=== PATIENT | female | born 1980 | race Caucasian/White ===

== ENCOUNTER → 2016-10-27 | Outpatient (CLI) | payer BC ==
[~2016-10-27] MED LIST: CETI10TA83 PO; DULO60CA25 PO; METF-200 PO; OMEP-29 PO; UBID100C10 PO; VITA1TAB21 PO
--- NOTE | 2016-10-28 08:43 | DI ---
Indication: ITS.REASON: M25.562 ACUTE PAIN OF LEFT KNEE; M25.562 INSTABILITY OF LT KNEE J PROCEDURE: KNEE LEFT 3 VIEWS: Encounter: Initial Comparison: None Findings: There is no acute fracture, dislocation or malalignment identified. No significant joint space narrowing. Very tiny patellofemoral and lateral compartment osteophytes. Impression: No acute osseous abnormality. Minimal degenerative change. .
== END ==
LOC: IMA 16:51
PROVIDERS: ATTEND Registered Nurse
DX: M17.12 Unilateral primary osteoarthritis, left knee (principal); M23.52 Chronic instability of knee, left knee

== ENCOUNTER 2016-11-09 20:15 | Inpatient (IN) ==
[2016-11-09] MEDS ORDERED: NS 1,000 ML IV ONE (20:53)
[2016-11-09] MEDS ORDERED: ONDANSETRON 4 MG/2 ML INJECTION IVP ONE (20:53)
[2016-11-09] MEDS ORDERED: KETOROLAC 30 MG/ML INJECTION IVP ONE (20:53)
--- NOTE | 2016-11-09 21:00 | Emergency Department Report ---
Abdominal Pain HPI - General Chief Complaint: Abdominal Pain Stated Complaint: Abdominal Pain Time Seen by Provider: 11/09/16 20:40 Source: patient Mode of arrival: ambulatory Limitations: no limitations - History of Present Illness HPI narrative: 36yo woman presents to the ER tonight with epigastric pain. Pain started at 1500 today. Is sharp/stabbing with radiation to her back. Pt has not had similar sx previously, but has had numerous abdominal surgeries in the past. Has not taken any meds for her pain. MD complaint: abdominal pain Onset (ago): hour(s) (6) Consistency: constant Location: epigastric Severity: severe Severity scale (1-10): 8 Quality: stabbing, sharp Radiation: none Migration to: periumbilical Relieving factors: rest Exacerbating factors: movement Associated symptoms: nausea, fever - Related Data LMP (females 10-50): last week Home Medications Medication Instructions Recorded Confirmed Cetirizine HCl 10 mg PO HS #0 tab 09/03/13 11/09/16 Omeprazole 20 mg PO HS #0 cap 09/03/13 11/09/16 Vitamin B Complex 1 tab PO HS #0 03/21/14 11/09/16 Labetalol [Normodyne] 100 mg PO BID 11/09/16 11/09/16 Levomilnacipran HCl [Fetzima] 120 mg PO DAILY 11/09/16 11/09/16 Allergies Allergy/AdvReac Type Severity Reaction Status Date / Time latex Allergy Mild RASH FROM Verified 11/09/16 20:46 BAND AIDS MOST NARCOTICS AdvReac Unknown STATES IS Uncoded 11/09/16 20:46 SENSITIVE TO NARCOTICS Review of Systems All systems: reviewed and negative except as stated Gastrointestinal: Reports: abdominal pain, nausea PFSH Allergic rhinitis HTN Depr GERD Surgical History: Cholecystectomy. C/s x2 Smoking status: Never smoker Substance use type: does not use Physical Exam - Limitations Limitations: no limitations - General General appearance: alert, in no apparent distress, obese - Head Head exam: atraumatic - Eye Eye exam: Present: normal appearance, PERRL, EOMI. Absent: scleral icterus - ENT ENT exam: Present: normal exam - Neck Neck exam: Present: normal inspection, full ROM, trachea midline - Chest Chest inspection: Present: normal inspection, symmetric chest wall rise - Respiratory Respiratory exam: Present: normal lung sounds bilaterally. Absent: respiratory distress, wheezes, accessory muscle use, prolonged expiratory phase - Cardiovascular Cardiovascular exam: Present: regular rate, normal rhythm, normal heart sounds, +S1, +S2. Absent: systolic murmur, diastolic murmur, +S3, +S4 - Abdominal Exam Abdominal exam: Present: soft, tenderness, normal bowel sounds. Absent: distention, guarding, rebound, psoas sign, obturator sign, Crane's sign, Rovsing's sign, tenderness at McBurney's Point, hernia Abdominal tenderness: Present: RLQ - Back Exam Back exam: Present: normal inspection - Skin Skin exam: Present: warm, dry, intact - Neurological Exam Neurological exam: Present: alert, oriented X3, CN II-XII intact - Psychiatric Psychiatric exam: Absent: normal affect, normal mood Course Course Narrative: 36yo woman with atypical presentation of abdominal. Last two ER visits resulted in cholecystectomy and ectopic treatment. Pt worked up and found to have unremarkable labs. CT ABD/Pelv revealed a grossly enlarged, intact, inflamed retrocecal appendix. Discussed pt with surgeon who requested that pt be admitted to the floor with basic orders; will see pt and plan for surgery in the AM. - Consultations Consultation #1: Omer Time: 22:46 Consultation #2: Dr. Márquez: Requested pt be admitted to his service; requests IVF, pain control, antiemetic, and invanz. Time: 22:46 Vital Signs Temperature 98.0 F 11/09/16 20:30 Pulse Rate 60 11/09/16 20:30 Respiratory Rate 18 11/09/16 20:30 Blood Pressure 162/77 H 11/09/16 20:30 Pulse Oximetry 98 11/09/16 20:30 Temperature 98.0 F 11/09/16 20:48 Pulse Rate 60 11/09/16 20:48 Respiratory Rate 18 11/09/16 20:48 Blood Pressure 162/77 H 11/09/16 20:48 Pulse Oximetry 98 11/09/16 20:48 Abdominal Pain - [facility] Narrative Medical decision making narrative: 36yo woman with acute appendicitis. Pt admitted to Gen Surg for likely appy in AM. - Differential Diagnosis Differential diagnosis: Likely: abdominal pain, acute appendicitis, constipation , diverticulitis, gastroenteritis, pancreatitis, small bowel obstruction - Medical Records Attestation: I reviewed the patient's medical records. - Lab Data Attestation: I reviewed the patient's lab results. Result diagrams: 11/09/16 21:18 11/09/16 21:18 - Radiology Data Attestation: I reviewed the patient's radiology results. CT Abd/pelv: Acute appendicitis. Diverticulosis. Splenomegaly. Disposition Clinical Impression: Acute appendicitis Qualifiers: Acute appendicitis type: with generalized peritonitis Qualified Code(s): K35.2 - Acute appendicitis with generalized peritonitis Disposition: Discharged Home, Self-Care Condition: Improved Time of Disposition: 23:07 - Seen By: physician
[2016-11-09] MEDS: SALINE FLUSH 10ml SYRINGE IVF PRN ×2 (21:25→23:53)
[2016-11-09] MEDS ORDERED: MORPHINE SULFATE 2 MG SYRINGE IVP ONE (21:39)
[2016-11-09] MEDS ORDERED: NS 100 ML ONE (21:43)
[2016-11-09] MEDS ORDERED: IOHEXOL 300mg/ml 100ml INJECTION ONE (21:43)
[2016-11-09] MEDS ORDERED: SALINE FLUSH 10ml SYRINGE ONE (21:43)
[2016-11-09] MEDS ORDERED: PANTOPRAZOLE 40 MG INJECTION IVP ONE (23:10)
[2016-11-09] MEDS ORDERED: ERTAPENEM 1 G in NS 100 ML IV ONE (23:57)
[2016-11-10] MEDS: MORPHINE SULFATE 4 MG SYRINGE IVP PRN ×2 (00:12→06:17)
[2016-11-10] MEDS: LR 1,000 ML IV SCH ×3 (00:13→14:37)
[2016-11-10] MEDS: ONDANSETRON 4 MG/2 ML INJECTION IVP PRN ×2 (06:21→19:19)
--- NOTE | 2016-11-10 07:15 | CT Scan Report ---
Indication: RLQ pain PROCEDURE: CT abdomen pelvis w con: Encounter: Initial Comparison: None Technique: Axial CT images were performed through the abdomen and pelvis after the administration of intravenous contrast. Coronal and sagittal two-dimensional reformats. Automated Exposure Control and Iterative Reconstruction dose reducing techniques were utilized. Contrast: Omnipaque 300 100 mL Findings: The lung bases are clear. The liver is unremarkable. Gallbladder is surgically absent. The spleen, pancreas and adrenal glands are within normal limits. The kidneys are normal. No abdominal or pelvic lymphadenopathy. Bladder is normal. Uterus and ovaries are within normal limits. No free fluid. No evidence of a bowel obstruction. The appendix is enlarged and inflamed with two appendicoliths present. This measures up to 1.6 cm in diameter and is in a retrocecal location extending just below the right lobe of liver. No free air or abscess. Bone windows are within normal limits. Impression: Acute appendicitis. Emergent surgical consultation is recommended. There is a preliminary report by [facility]. .
--- NOTE | 2016-11-10 07:37 | XRay Report ---
INDICATION: Pre-op PROCEDURE: CHEST 2-VIEWS UPRIGHT (PA & LAT) Encounter: Initial COMPARISON: None FINDINGS: The lungs are clear without evidence of focal abnormal airspace opacity. There is no pleural effusion or pneumothorax. The heart size, mediastinal contours and pulmonary vascularity are within normal limits. There is no significant skeletal abnormality. IMPRESSION: No acute cardiopulmonary disease. .
--- NOTE | 2016-11-10 08:27 | History and Physical ---
FINDINGS Mrs. Hartley is a 36-year-old female whom I was asked to see late last evening through the emergency room as a result of the patient's history and physical findings of abdominal pain in conjunction with an abnormal CT scan. The patient informs me that she was feeling her normal self until about 3 o'clock in the afternoon yesterday. The patient states that she began to experience some periumbilical discomfort at that time. As the day progressed the pain became more severe in nature and began to localize to her right lower quadrant. The patient states that she was walking "bent over" because of the discomfort. The patient states that it did feel somewhat better to "roll up in a ball". She described the pain as constant in nature. Pain was made worse with ambulation or with palpation. She did have some nausea in association with the pain but did not have emesis. As a result of the ongoing abdominal pain that is becoming more severe in nature. She presented to our emergency room facility last evening. She had a CT scan that revealed evidence for appendicitis. The patient was subsequently admitted and began on broad- spectrum antibiotics. This morning the patient did not appear to be in acute distress. She was lying in bed and was conversant. PAST MEDICAL HISTORY Performed by my nurse practitioner, Jeison Rocha. PAST SURGICAL HISTORY Performed by my nurse practitioner, Jeison Rocha. MEDICATIONS Performed by my nurse practitionerJeison. ALLERGIES Performed by my nurse practitionerJeison. SOCIAL HISTORY Performed by my nurse practitioner, Jeison Rocha. FAMILY HISTORY Performed by my nurse practitionerJeison. REVIEW OF SYSTEMS Performed by my nurse practitionerJeison. PHYSICAL EXAMINATION Mrs. Hartley is medicated a 36-year-old female who, as above, did not appear to be in acute distress this morning. VITALS: Temperature 96.5, pulse 66, respirations 18, blood pressure 127/72, SaO2 97% on room air. HEENT: Normocephalic. Pupils are equal, round and reactive to light and accommodation. NECK: Supple without lymphadenopathy. CHEST: Clear to auscultation bilaterally. HEART: Regular rate and rhythm. Normal S1 and S2 without gallops, murmurs or clicks. ABDOMEN: Palpation of the abdomen does indeed reveal localized tenderness to her right lower quadrant of her abdomen. Pain was also located slightly more cephalad than typical for appendicitis. Pain was located to the right of the umbilicus as well as slightly caudad. She did have localized tenderness. Did have a component of some voluntary guarding. No evidence for involuntary guarding or rebound tenderness. No evidence of hepatomegaly or other abnormal masses. EXTREMITIES: Without clubbing, cyanosis, or edema. NEURO: Cranial nerves II-XII grossly intact. Patient is without focal motor or sensory deficits. LABORATORY/RADIOGRAPH EVALUATION The patient had a CBC obtained upon admission. Her white count was 11.7. Hemoglobin was slightly low at 10.9. CMP was obtained and found to be essentially within normal limits. Lipase was normal at 73. CT scan of her abdomen and pelvis was obtained. Findings were consistent with that of appendicitis. ASSESSMENT 36-year-old female with acute appendicitis. PLAN Laparoscopic appendectomy. I informed the patient it was my recommendation that we proceed with surgical intervention later today. I did discuss in detail with the patient and her , who is a physician, what a laparoscopic appendectomy entails and its associated risks which include, but are to limited to, bleeding, infection, potential conversion to open procedure. The patient and her understood and wished to proceed. ANDREINA
--- NOTE | 2016-11-10 09:37 | General Surg History&Physical ---
- History of Present Illness Chief complaint: RLQ abd pain HPI: Per Dr. Rome [facility] Patient Stated Medical History Migraine Yes: tension headaches Hypertension Yes: normally takes a beta evangelist GERD Depression Yes Surgical History: Cholecystectomy 2004. 2006, 2008. Right salpingectomy 09-04-2013. 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 Medications Home Medications Medication Instructions Recorded Confirmed Type Cetirizine HCl 10 mg PO HS #0 tab 09/03/13 11/09/16 History Omeprazole 20 mg PO HS #0 cap 09/03/13 11/09/16 History Vitamin B Complex 1 tab PO HS #0 03/21/14 11/09/16 History Labetalol [Normodyne] 100 mg PO BID 11/09/16 11/09/16 History Levomilnacipran HCl [Fetzima] 120 mg PO DAILY 11/09/16 11/09/16 History Allergies Allergy/AdvReac Type Severity Reaction Status Date / Time latex Allergy Mild RASH FROM Verified 11/09/16 20:46 BAND AIDS MOST NARCOTICS AdvReac Unknown STATES IS Uncoded 11/09/16 20:46 SENSITIVE TO NARCOTICS Review of Systems 10-point ROS: negative except for HPI and the following: - Respiratory Respiratory: Present: use of CPAP - Psychiatric Psychiatric: Present: depression - Vital Signs Vital Signs: Last Vital Signs Temp 96.5 F L 11/10/16 07:33 Pulse 66 11/10/16 07:33 Resp 18 11/10/16 07:33 BP 127/72 11/10/16 07:33 Pulse Ox 97 11/10/16 07:33 General Surgery Results - Results Labs: 11/10/16 03:52 11/10/16 03:52 Sepsis Assessment - Evaluation Sepsis screening result: No Definite Risk - Focused Exam Vital Signs Temp Pulse Resp BP Pulse Ox 11/10/16 07:33 96.5 F L 66 18 127/72 97 11/09/16 23:15 97.5 F 62 18 137/86 98 11/09/16 23:01 151/79 H 11/09/16 23:00 59 L 98 Hospital Course Summary Disclaimer: The visit summary below is not to be considered part of the above Progress Note.
[2016-11-10] MEDS ORDERED: PROPOFOL 20 ML ONE ×2 (12:08)
[2016-11-10] MEDS ORDERED: LIDOCAINE 2% (100mg/5mL) PF 5ml vl ONE ×2 (12:08)
[2016-11-10] MEDS ORDERED: ROCURONIUM 50 MG/5 ML INJECTION IVP ONE ×2 (12:08)
[2016-11-10] MEDS ORDERED: SUCCINYLCHOLINE 20mg/mL 10mL INJECTION ONE (12:08)
[2016-11-10] MEDS ORDERED: PROPOFOL 500 MG/50 ML VIAL IV ONE (12:08)
[2016-11-10] MEDS ORDERED: GLYCOPYRROLATE 0.4 MG/2 ML INJECTION ONE (12:12)
[2016-11-10] MEDS ORDERED: ONDANSETRON 4 MG/2 ML INJECTION ONE (12:12)
[2016-11-10] MEDS ORDERED: BUPIVACAINE 0.25%/EPI 1:200,000 30ml SDV ONE (12:15)
[2016-11-10] MEDS ORDERED: BUPIVACAINE 0.25%/EPI 1:200,000 30ml SDV ID ONE (12:18)
--- NOTE | 2016-11-10 12:27 | Anesthesia Preoperative Report ---
Anesthesia Preoperative Record - Date and Time Date: 11/10/16 Preoperative Diagnosis: acute abd. Proposed Procedure: lap. appy Allergies/Adverse Reactions: Allergies Allergy/AdvReac Type Severity Reaction Status Date / Time latex Allergy Mild RASH FROM Verified 11/09/16 20:46 BAND AIDS MOST NARCOTICS AdvReac Unknown STATES IS Uncoded 11/09/16 20:46 SENSITIVE TO NARCOTICS - Vital Signs Vital Signs: Temp Pulse Resp BP Pulse Ox 98.5 F 67 15 133/74 97 11/10/16 12:23 11/10/16 12:23 11/10/16 12:23 11/10/16 12:23 11/10/16 07:33 Height and Weight: Height 1.63 m Weight 138.1 kg Body Mass Index 52.2 - Medications Inpatient Medications: Current Medications Bupivacaine HCl/Epinephrine Bitart (Marcaine/Epi 0.25%/1:200,000) 30 ml ID O ONE Stop: 11/10/16 12:19 Lactated Ringer's (Lactated Ringers) 1,000 mls @ 150 mls/hr IV .Q6H40M NINO Last Infusion: 11/10/16 12:10 Dose: 0 mls/hr Morphine Sulfate (Morphine Sulfate Inj) 1 - 2 mg IVP Q2H PRN PRN Reason: Pain Last Admin: 11/10/16 06:17 Dose: 2 mg Ondansetron HCl (Zofran) 4 mg IVP Q6H PRN PRN Reason: Nausea &/or vomiting Last Admin: 11/10/16 06:21 Dose: 4 mg Home Medications: Home Medications Medication Instructions Recorded Confirmed Type Cetirizine HCl 10 mg PO HS #0 tab 09/03/13 11/09/16 History Omeprazole 20 mg PO HS #0 cap 09/03/13 11/09/16 History Vitamin B Complex 1 tab PO HS #0 03/21/14 11/09/16 History Labetalol [Normodyne] 100 mg PO BID 11/09/16 11/09/16 History Levomilnacipran HCl [Fetzima] 120 mg PO DAILY 11/09/16 11/09/16 History Is Patient on Beta Evangelista?: Yes Beta Evangelista: Yes Beta Evangelista Time: 11/09/16 - Medical History Respiratory: Reports: Sleep Apnea Cardiovascular: Reports: Hypertension Gastrointestional: Reports: Morbid Obesity Other History: Reports: Anesthesia Reactions - Surgical History Respiratory Surgery/Treatments: Reports: CPAP Use Reproductive Surgery/Treatment: Reports: Section (x2) - Social History Smoking Status: Never smoker Hx Chewing Tobacco Use: No Second Hand Exposure: No Substance Use Type: does not use Alcohol Intake: current Alcohol Intake Frequency: a few times a month - Pertinent Findings Laboratory: CBC and BMP 11/10/16 03:52 11/10/16 03:52 BMP 11/09/16 11/10/16 21:18 03:52 Sodium 143 141 Potassium 3.9 4.1 Chloride 104 105 Carbon Dioxide 25 25 BUN 8.0 8.0 Creatinine 1.0 0.9 Glucose 107 117 H Calcium 9.1 8.4 Liver Function 11/09/16 Range/Units 21:18 Total Bilirubin 0.50 (0.20-1.30) MG/DL AST 19 (14-36) U/L ALT 42 (9-52) U/L Alkaline Phosphatase 31 L (38-126) U/L Albumin 4.6 (3.5-5.0) G/DL Urine 11/10/16 Range/Units 03:50 Urine Color Yellow (YELLOW) Urine Clarity Clear Urine pH 6.0 (5.0-8.0) Ur Specific Dumont <=1.005 L (1.015-1.025) Urine Protein Negative (NEGATIVE) Urine Glucose (UA) Negative (NEGATIVE) EKG Rhythm: Normal Sinus Rhythm - Physical Exam Respiratory Exam: Present: lungs clear, bilateral breath sounds equal Cardiovascular Exam: Present: regular rate and rhythm, no murmur - Airway Assessment Mallampati Score: II TMD: 2 Fingerbreadths Neck Extension: fair Overall Assessment: may be difficult mask vent, may be difficult intubation - ASA ASA Score: 2 - Plan Anesthesia: General Inhalation Gases - Discussion Discussion: Discussed risks/options/alternatives of anesthesia and questions answered. Patient consents. Nursing pain assessment noted. Attestation Statement: Prior to the delivery of any anesthetic medication, I examined the patient, developed the plan, obtained the patient's consent and discussed the risk and benefits of the procedure with the patient/guardian.
[2016-11-10] MEDS ORDERED: FentaNYL 250 MCG/5 ML INJECTION ONE (12:51)
[2016-11-10] MEDS ORDERED: MIDAZOLAM 2mg/2ml INJECTION ONE (12:51)
[2016-11-10] MEDS ORDERED: LR 1,000 ML IV SCH (13:00)
[2016-11-10] MEDS ORDERED: LACRI-LUBE EYE OINT 3.5gm ONE (13:07)
[2016-11-10] MEDS ORDERED: DESFLURANE 240ml LIQUID IH ONE (13:19)
[2016-11-10] MEDS ORDERED: KETOROLAC 30 MG/ML INJECTION ONE (13:56)
[2016-11-10] MEDS ORDERED: SUGAMMADEX 200mg/2ml INJECTION IVP ONE (13:57)
--- NOTE | 2016-11-10 14:56 | General Surgery Procedure Note ---
Date of Procedure: 11/10/16 Surgeon: Yulisa Loss Prevention Leader: Jeison Rocha APRN Postoperative Diagnosis: Acute appendicitis Procedure: Procedures Operation Date: 11/10/16 12:30 Actual Procedures p Laparoscopic Appendectomy - Rod Márquez MD Estimated Blood Loss: See Anesthesia Record.
[2016-11-10] MEDS ORDERED: POLYETHYL GLYCOL 3350 17gm PACKET PO SCH (15:00)
[2016-11-10] MEDS ORDERED: HYDROCODONE/APAP 5mg/325mg TABLET PO PRN (15:00)
--- NOTE | 2016-11-10 15:33 | Operative Note ---
DATE OF SERVICE 11/10/2016 SURGEON Rod Márquez MD PREOPERATIVE DIAGNOSIS Appendicitis. POSTOPERATIVE DIAGNOSIS Retrocecal appendicitis. PROCEDURE Laparoscopic appendectomy. ANESTHESIA General tracheal EBL & FLUIDS Please see chart. BRIEF HISTORY/INDICATIONS Mrs. Hartley is a 36-year-old female whom I was asked to see late last evening as a result of her history and physical findings of abdominal pain in conjunction with an abnormal CT scan revealing evidence for appendicitis. Upon examination, the patient was found to be quite tender within right lower quadrant. The patient's clinical history, physical findings, laboratory results and radiographic results were all indicative for appendicitis. It was therefore recommended that she undergo surgical intervention. For completeness please refer to notes included in the patient's chart. FINDINGS Upon laparoscopy, the liver edge was smooth and without nodularities. Peritoneal surfaces which were visualized were without noted abnormalities. Omentum, small bowel, and colon which were visualized were within normal limits. Both ovaries had some small cystic structures upon them but was normal for her given age. Uterus without marked abnormalities. Appendix was found to be retrocecal and quite inflamed but without evidence for rupture. A standard laparoscopic appendectomy was able to be completed without incident. DESCRIPTION OF PROCEDURE After informed consent was obtained, patient was brought to the operative suite and placed on the table in a supine fashion. Abdomen was then prepped and draped in sterile fashion. Formal time-out was then completed. 0.25% Marcaine with epinephrine was injected just beneath the level of the umbilicus. A 2 cm curved incision was then made through the area of analgesia. Dissection was then carried down to the deep subcuticular tissues and underlying fascia. The fascia was then grasped with two Fracnes clamps and retracted anteriorly. A 1 cm incision was made between the two Frances clamps. Hemostat was then introduced in the fascial incision and gently spread. A U-stitch was then placed with 0 Vicryl. A 12 mm Audie port was then placed in the peritoneal cavity and pneumoperitoneum was then established to a patient pressure of 15 mmHg utilizing carbon dioxide. Additional 5 mm port as well as an additional 12 mm port was then placed in the suprapubic region and right upper quadrant, respectively. Each port site was preinjected with 0.25% Marcaine with epinephrine and placed under direct visualization. Abdominal cavity was explored via laparoscope. Findings were noted as above. One could see that the tissue was quite edematous along the right pericolic gutter. CT scan did reveal evidence for appendicitis. The appendix itself was not visible and was completely retrocecal in nature. The white line of Toldt was incised along the right pericolic gutter. Peritoneum to the terminal ileum was also incised. The right colon was reflected medially. Terminal ileum was also reflected anteriorly. One could then see retrocecal appendix that extended along the majority of the length of the right colon up towards the edge of the right lobe of the liver. Appendix was dissected free from its retrocecal location. Mesoappendix itself was found to be quite indurated and erythematous in nature. There was no evidence for kristine perforation. No purulent drainage was present. Mesoappendix was then divided with a vascular staple as well as between hemoclips. There was some bleeding along the staple line when the mesoappendix was divided utilizing the linear stapler. A few additional hemoclips were placed upon the site of bleeding resulting in complete hemostasis. Eventually the mesoappendix was able to be completely divided down to the base of the appendix. Linear stapler was then reloaded with a GI load. Linear stapler was then placed across the base of the appendix and fired. Appendix was then placed in a laparoscopic retrieval bag and removed via the infraumbilical port site. Irrigation was performed and all irrigant was suctioned till clear. Prior areas of dissection were inspected and found to be hemostatic in nature. Previous staple line upon the cecum was also found to be hemostatic and intact in nature. Next attention was directed towards closure. Each port site was removed under direct visualization. Pneumoperitoneum was then released. The previously placed U-stitch was then secured, imbricating the fascia at the infraumbilical port site. Skin incisions were then closed in a subcuticular fashion with 4-0 Monocryl. Dermabond was placed overlying each incision. Patient was awakened from her anesthetic and currently is in the recovery room in stable condition. ADNREINA
--- NOTE | 2016-11-10 16:51 | Event Note ---
36 year old female, post lap appy. She is quite lethargic yet, requiring c-pap for respiratory support. She is quite heavy, making her at greater risk for respiratory compromise. It is recommended that she spend the night for monitoring respiratory status, and allow for IV pain and nausea control.
[2016-11-10] MEDS ORDERED: ONDANSETRON 4 MG TABLET PO PRN (16:56)
--- NOTE | 2016-11-10 17:05 | Discharge Summary ---
Discharge Information Attending Physician: Rod Márquez MD Primary care physician: Amanda Johnson DO - Discharge Diagnosis (1) Acute appendicitis Qualifiers: Acute appendicitis type: with generalized peritonitis Qualified Code(s): K35.2 - Acute appendicitis with generalized peritonitis Status: Resolved (2) Obesity, morbid, BMI 50 or higher Status: Chronic (3) Obstructive sleep apnea on CPAP Status: Chronic (4) Postoperative hypoxia Status: Acute - Laboratory Labs: 11/10/16 03:52 11/10/16 03:52 Laboratory Tests 11/09/16 11/09/16 11/10/16 21:18 21:18 03:52 WBC 9.9 11.7 H Hgb 11.7 L 10.9 L Sodium 143 Potassium 3.9 BUN 8.0 Creatinine 1.0 Glucose 107 11/10/16 03:52 WBC Hgb Sodium 141 Potassium 4.1 BUN 8.0 Creatinine 0.9 Glucose 117 H - Radiology Radiology: 11-09-2016CT abd/pelvis Findings: The lung bases are clear. The liver is unremarkable. Gallbladder is surgically absent. The spleen, pancreas and adrenal glands are within normal limits. The kidneys are normal. No abdominal or pelvic lymphadenopathy. Bladder is normal. Uterus and ovaries are within normal limits. No free fluid. No evidence of a bowel obstruction. The appendix is enlarged and inflamed with two appendicoliths present. This measures up to 1.6 cm in diameter and is in a retrocecal location extending just below the right lobe of liver. No free air or abscess. Bone windows are within normal limits. Impression: Acute appendicitis. Emergent surgical consultation is recommended. 11-10-2016 Pre-op CXR FINDINGS: The lungs are clear without evidence of focal abnormal airspace opacity. There is no pleural effusion or pneumothorax. The heart size, mediastinal contours and pulmonary vascularity are within normal limits. There is no significant skeletal abnormality. IMPRESSION: No acute cardiopulmonary disease. - History of Present Illness Chief complaint: RLQ abd pain HPI: Mrs. Hartley is a 36-year-old female whom I was asked to see late last evening as a result of her history and physical findings of abdominal pain in conjunction with an abnormal CT scan revealing evidence for appendicitis. Upon examination, the patient was found to be quite tender within right lower quadrant. The patient's clinical history, physical findings, laboratory results and radiographic results were all indicative for appendicitis. It was therefore recommended that she undergo surgical intervention. For completeness please refer to notes included in the patient's chart. Hospital Course Hospital course: 11-09-2016 Mrs. Hartley is a 36-year-old female whom I was asked to see late last evening as a result of her history and physical findings of abdominal pain in conjunction with an abnormal CT scan revealing evidence for appendicitis. Upon examination, the patient was found to be quite tender within right lower quadrant. The patient's clinical history, physical findings, laboratory results and radiographic results were all indicative for appendicitis. It was therefore recommended that she undergo surgical intervention. For completeness please refer to notes included in the patient's chart. 11-10-2016 36 year old female, post lap appy. She is quite lethargic yet, requiring c-pap for respiratory support, post op hypoxia. She is quite heavy, making her at greater risk for respiratory compromise. It is recommended that she spend the night for monitoring respiratory status, and allow for IV pain and nausea control. 11-11-2016 Vomiting during the evening yesterday requiring additional IV medication. Used bi-pap during the night. Nausea subsided, she is feeling that she may go home today. Discharge instructions discussed, questions answered. Follow up appointment for November [address] Márquez. Rx for Augmentin for 5 days, prn Zofran and Miralax , prn Ultram. DVT Prophylaxis: SCD's Discharge Plan - Med Rec/Dispo Referrals/Follow Up: Amanda Johnson DO [Family Provider] - (As needed) Rod Márquez MD [Physician] - 11/25/16 1:15 pm Prescriptions: New Amoxicillin/Potassium Clav [Amox-Clav 875-125 mg Tablet] 875 mg PO Q12HR #10 Ondansetron Tab [Zofran Po] 4 mg PO Q6H PRN #10 PRN Reason: Nausea Peg 3350 17 G Packet [Miralax] 17 gm PO DAILY PRN #10 packet PRN Reason: Constipation Tramadol [Ultram] 50 mg PO Q6HR PRN #15 tab PRN Reason: Pain Continue Cetirizine HCl 10 mg PO HS #0 tab Omeprazole 20 mg PO HS #0 cap Vitamin B Complex 1 tab PO HS #0 Labetalol [Normodyne] 100 mg PO BID Levomilnacipran HCl [Fetzima] 120 mg PO DAILY - Disposition 01 Discharged Home, Self-Care
[2016-11-10] MEDS: IBUPROFEN 800 MG TABLET PO PRN (18:16)
[2016-11-10] MEDS ORDERED: ERTAPENEM 1 G in NS 100 ML IV ONE (20:00)
[2016-11-10] MEDS ORDERED: DiphenhydrAMINE 50 MG/ML INJECTION IVP ONE (20:50)
[2016-11-10] MEDS ORDERED: AMOX/CLAV 875 MG/125 MG TABLET PO SCH (21:00)
[2016-11-10] MEDS: LABETALOL 100 MG TABLET PO SCH (21:57)
[2016-11-10] MEDS ORDERED: OMEPRAZOLE 20 MG CAPSULE PO SCH (22:00)
[2016-11-10] MEDS ORDERED: CETIRIZINE 10 MG TABLET PO SCH (22:00)
[2016-11-10] MEDS: POLYETHYL GLYCOL 3350 17gm PACKET PO SCH (22:02)
[2016-11-11] MEDS: LR 1,000 ML IV SCH (02:37)
[2016-11-11] MEDS: IBUPROFEN 800 MG TABLET PO PRN (05:00)
[2016-11-11] MEDS ORDERED: AMOX/CLAV 875 MG/125 MG TABLET PO SCH (08:00)
--- NOTE | 2016-11-11 08:15 | Discharge Summary ---
Discharge Plan - Med Rec/Dispo Referrals/Follow Up: Rod Márquez MD [Physician] - 11/25/16 1:15 pm Amanda Johnson DO [Family Provider] - (As needed) Prescriptions: New Amoxicillin/Potassium Clav [Amox-Clav 875-125 mg Tablet] 875 mg PO Q12HR #10 Ondansetron Tab [Zofran Po] 4 mg PO Q6H PRN #10 PRN Reason: Nausea Peg 3350 17 G Packet [Miralax] 17 gm PO DAILY PRN #10 packet PRN Reason: Constipation Tramadol [Ultram] 50 mg PO Q6HR PRN #15 tab PRN Reason: Pain Continue Cetirizine HCl 10 mg PO HS #0 tab Omeprazole 20 mg PO HS #0 cap Vitamin B Complex 1 tab PO HS #0 Labetalol [Normodyne] 100 mg PO BID Levomilnacipran HCl [Fetzima] 120 mg PO DAILY - Disposition 01 Discharged Home, Self-Care
--- NOTE | 2016-11-11 08:33 | General Surgery Progress Note ---
Subjective Patient reports: feels better (she does not think she will need any pain medication more than Ibuprofen or Tylenol, Ultram Rx written that she can fill if needed), vomiting (yesterday evening, better this morning, eating small breakfast) - Vital Signs Vital Signs: Last Vital Signs Temp 98.7 F 11/11/16 04:20 Pulse 79 11/11/16 04:20 Resp 16 11/11/16 04:20 BP 123/68 11/11/16 04:20 Pulse Ox 95 11/11/16 04:20 - Abnormal Exam Abdominal: obese - Normal Exam Abdominal: appropriately tender (at trocar sites) Wound/Stoma Assessment - Wound Management Abdomen Wound Type: Surgical Incision (with glue in tact, some early ecchymosis noted at each trocar site) Assessment and Plan (1) Acute appendicitis Current Visit: Yes Status: Resolved Qualifiers: Acute appendicitis type: with generalized peritonitis Qualified Code(s): K35.2 - Acute appendicitis with generalized peritonitis (2) Obesity, morbid, BMI 50 or higher Current Visit: Yes Status: Chronic (3) Obstructive sleep apnea on CPAP Current Visit: Yes Status: Chronic (4) Postoperative hypoxia Current Visit: Yes Status: Acute (5) Post-operative nausea and vomiting Current Visit: Yes Status: Resolved Plan: Doing much better this morning. Vomiting has stopped after additional IV anti- nausea meds. She required Bi-Pap from respiratory therapy during the night for sleep apnea. She feels that Ibuprofen and Tylenol will be sufficient for pain, an Rx for Ultam written that she can fill if needed. Plan on discharge this morning. Hospital Course Summary Disclaimer: The visit summary below is not to be considered part of the above Progress Note. Hospital Course: 11-09-2016 Mrs. Hartley is a 36-year-old female whom I was asked to see late last evening as a result of her history and physical findings of abdominal pain in conjunction with an abnormal CT scan revealing evidence for appendicitis. Upon examination, the patient was found to be quite tender within right lower quadrant. The patient's clinical history, physical findings, laboratory results and radiographic results were all indicative for appendicitis. It was therefore recommended that she undergo surgical intervention. For completeness please refer to notes included in the patient's chart. 11-10-2016 36 year old female, post lap appy. She is quite lethargic yet, requiring c-pap for respiratory support, post op hypoxia. She is quite heavy, making her at greater risk for respiratory compromise. It is recommended that she spend the night for monitoring respiratory status, and allow for IV pain and nausea control. 11-11-2016 Vomiting during the evening yesterday requiring additional IV medication. Used bi-pap during the night. Nausea subsided, she is feeling that she may go home today. Discharge instructions discussed, questions answered. Follow up appointment for November [address] Márquez. Rx for Augmentin for 5 days, prn Zofran and Miralax , prn Ultram. Sepsis Assessment - Evaluation Sepsis screening result: No Definite Risk - Focused Exam Vital Signs Temp Pulse Resp BP Pulse Ox 11/11/16 04:20 98.7 F 79 16 123/68 95 11/11/16 00:18 99.0 F 63 18 135/80 96 11/10/16 20:39 98.5 F 78 16 97
[2016-11-11] MEDS ORDERED: LEVOMILNACIPRAN 40 MG PO SCH (09:00)
[2016-11-11] MEDS: LABETALOL 100 MG TABLET PO SCH (09:32)
[2016-11-11] MEDS: POLYETHYL GLYCOL 3350 17gm PACKET PO SCH (09:32)
== END 2016-11-11 09:55 | disposition home or self-care (01) | DRG 339 ==
LOC: ED 20:15 → SUR 23:04 → SRG 23:07
PROVIDERS: ADMIT Surgery; ATTEND Surgery